=== PATIENT | female | born 1970 | race Caucasian/White ===

== ENCOUNTER 2019-08-23 21:12 | Emergency (ER) | payer MEDICAID ==
[~2019-08-23] VITALS: Ht 154.9 cm; Wt 104.5 kg
--- NOTE | 2019-08-23 21:26 | NUR ---
PT WILL LOOK ON HER PHONE FOR ALLERGY INFORMATION, CANNOT REMEMBER WHAT SHE IS ALLERGIC TO
[2019-08-23 22:39] LABS: CLARITY,URINE SLIGHTLY CLOUDY (Clear); COLOR,URINE YELLOW (Yellow); GLUCOSE, URINE NEGATIVE (Neg); KETONES,URINE NEGATIVE (Neg); LEUKOCYTE ESTERASE ,URINE MODERATE (Neg); NITRITES, URINE POSITIVE (Neg); OCCULT BLOOD,URINE SMALL (Neg); PH,URINE 5.5 (4.8-8.0); PROTEIN,URINE 100 mg/dl (Neg); UA COLLECTION TYPE CLN CATCH MIDSTREAM; UROBILINOGEN,URINE 0.2 E.U/dL (0.2-1.0)
[2019-08-23] MEDS ORDERED: CEPH500C2 PO ×2 (22:47)
[2019-08-23 22:59] VITALS: BP 137/93
[2019-08-23 22:59] LABS: BACTERIA,URINE 2+ /HPF (Neg); MUCUS STRANDS NONE SEEN /LPF (Neg); RBC,URINE 0-2 /HPF (0-2); SQUAMOUS EPITHELIAL CELL,UR FEW /LPF (FEW); WBC,URINE TNTC /HPF (0-4)
== END 2019-08-23 23:01 | disposition home or self-care (01) ==
LOC: ER 21:14
DX: N39.0 Urinary tract infection, site not specified (principal); E11.9 Type 2 diabetes mellitus without complications; Z88.5 Allergy status to narcotic agent
CPT/HCPCS: 81001; 87077; 87088; 87186; 99283

== ENCOUNTER 2025-01-28 13:32 | Emergency (ER) | payer MEDICARE, MEDICAID ==
[~2025-01-28] VITALS: Ht 154.9 cm; Wt 102.3 kg
[2025-01-28 13:54] VITALS: BP 141/102; PULSE 57; RESP 18; O2SAT 95
--- NOTE | 2025-01-28 14:13 | Physician Documentation ---
History of Present Illness ~ General Chief Complaint: Multiple Medical Complaints Stated Complaint: MULTIPLE MED COMPLAINTS Time Seen by MD: 15:06 Primary Medical Doctor: Lynn History of Present Illness Initial Comments This is a 54-year-old female who presents with concern of bleeding at her CGM site and pain to her left knee. Patient reports no known injury to left knee. Medication Reconciliation Allergies: Coded Allergies: acetaminophen (Unverified Allergy, Unknown, 01/28/25) adhesive tape (Verified Allergy, Unknown, 08/23/19) hydromorphone (Verified Allergy, Unknown, 08/23/19) oxycodone (Verified Allergy, Unknown, 08/23/19) Scheduled Cyclobenzaprine HCl (Cyclobenzaprine HCl), 1 TAB PO Q8H Past Medical History Past Medical History: Diabetes Past Surgical History: noncontributory Drug Use: none Lives In: Home Physical Exam Physical Exam Vital Signs: Temperature: 97.7, Source: Temporal, Heart Rate: 57, Respiratory Rate: 18, BP: 141/102, Pulse Oximetry: 95, Weight: 102.270 Oxygen Flow Rate: 0 Physical Exam VITALS: Reviewed and as above. GENERAL: Alert, nontoxic appearing, no apparent distress. HEENT: RESPIRATORY: No increased work of breathing, no respiratory distress, speaking in full clear sentences CHEST: CV: BACK: GI: MUSCULOSKELETAL: SKIN: Small amount of ecchymosis to posterior left upper arm NEURO: PSYCH: Progress Results/Orders Results/Orders Orders - SHANNA MEYER MD Knee, Complete (01/28/25 13:58) Completed Orders - SHANNA MEYER MD Knee, Complete (01/28/25 13:58) Vital Signs 01/28/25 01/28/25 13:54 15:30 Temp 97.7 97.7 Pulse 57 Resp 18 B/P (MAP) 141/102 Pulse Ox 95 O2 Flow Rate 0 Medical Decision Making Findings Patient is seen in triage and MSE completed. Patient placed from triage to available ED room. I reassured patient that the blood clot that came out of her diabetes sensor was not concerning. Told her use warm compress to help dissolve the clot. I examined her knee which showed no evidence of positive Wendy's or Saul's drawer test I told her to stopped sitting in the modified [place] style position she reportedly sits in often for extended period of time in his will likely alleviate her symptoms Departure Disposition: 01 HOME / SELF CARE / HOMELESS Impression: Primary Impression: Knee pain, acute Condition: Stable Discharge Instructions: Acute Knee Pain, Adult Referrals: NO PRIMARY CARE PROVIDER (PCP) Prescriptions Cyclobenzaprine HCl (Cyclobenzaprine HCl) 10 Mg Tablet 1 TAB PO Q8H for muscle spasms for 10 Days, #30 TAB Prov: JESSI LOCKE MERCHANDISE DELIVERER 01/28/25 Signature Scribe Signature: e Attestation: Scribed for Jessi Locke Radiologist Chief Of Breast Imaging by Jessi Locke - DEBBY . 01/28/25 15:09 SIMONE ABDULLAHI Jan 28, 2025 14:13 JESSI LOCKE NP Jan 28, 2025 15:09 SHANNA MEYER MD Jan 29, 2025 19:51
--- NOTE | 2025-01-28 14:47 | RADIOLOGY REPORT ---
CLINICAL INDICATION: KNEE PAIN LEFT TECHNIQUE: 3 radiographic views of the left knee were obtained. Comparison: None FINDINGS/IMPRESSION: There is no evidence of acute fracture or dislocation. The visualized joint space is well maintained. The alignment is anatomical. There is no radiopaque foreign body.
[2025-01-28] MEDS ORDERED: ketorolac trometh 15mg/ml vial 15 MG/ML ML IM ONE (15:20)
[2025-01-28] MEDS ORDERED: CYCL-394 PO (15:21)
[2025-01-28 15:30] VITALS: TEMP 97.7
== END 2025-01-28 15:31 | disposition home or self-care (01) ==
LOC: ER 13:34
DX: M25.562 Pain in left knee (principal); E11.9 Type 2 diabetes mellitus without complications; Z88.8 Allergy status to other drugs, medicaments and biological substances
CPT/HCPCS: 73564; 99283